=== PATIENT | male | born 1960 | race Caucasian/White ===

== ENCOUNTER 2019-03-30 10:08 | Day surgery (SDC) | payer OTHER ==
[~2019-03-30] VITALS: Ht 172.7 cm; Wt 80.6 kg
[~2019-03-30 10:08] MED LIST: IBUP600 PO; Naprosyn500 MG PO; Veetids 500500 MG PO
[2019-03-30] MEDS ORDERED: HORIZANT600 MG (11:22)
[2019-03-30] MEDS ORDERED: ALBU90OI (11:22)
--- NOTE | 2019-03-30 12:39 | NUR ---
03/30/19 1239 Twhiral,Miroslava PROCEDURE ENDED SHORT DUE TO POOR PREP
== END 2019-03-30 12:28 | disposition home or self-care (01) ==
LOC: ORSCSDS 10:08
PROVIDERS: Internal Medicine Gastroenterology
PROC: 0DJD8ZZ Inspection of Lower Intestinal Tract, Via Natural or Artificial Opening Endoscopic (ICD-10-PCS; principal; 2019-03-30 11:30)
DX: Z12.11 Encounter for screening for malignant neoplasm of colon (principal); K64.8 Other hemorrhoids; F17.210 Nicotine dependence, cigarettes, uncomplicated; Z79.899 Other long term (current) drug therapy
CPT/HCPCS: J2704; J7120

== ENCOUNTER 2019-04-23 07:52 | Day surgery (SDC) | payer OTHER ==
[~2019-04-23] VITALS: Ht 172.7 cm; Wt 82.9 kg
[~2019-04-23 07:52] MED LIST changes: +ALBU90OI; +HORIZANT600 MG
== END 2019-04-23 10:06 | disposition home or self-care (01) ==
LOC: ORSCSDS 07:52
PROVIDERS: Internal Medicine Gastroenterology
PROC: 0DBM8ZX Excision of Descending Colon, Via Natural or Artificial Opening Endoscopic, Diagnostic (ICD-10-PCS; principal; 2019-04-23 09:15)
DX: Z12.11 Encounter for screening for malignant neoplasm of colon (principal); D12.4 Benign neoplasm of descending colon; K64.8 Other hemorrhoids; F17.210 Nicotine dependence, cigarettes, uncomplicated
CPT/HCPCS: 88305; J2704; J7120

== ENCOUNTER 2023-04-16 12:48 | Emergency (ER) | payer OTHER ==
[~2023-04-16] VITALS: Ht 172.7 cm; Wt 81.7 kg
[2023-04-16 13:00] VITALS: BP 165/91
[2023-04-16] MEDS ORDERED: GABA100 PO (15:13)
[2023-04-16] MEDS ORDERED: CEPHALEXIN500 MG PO (15:47)
[2023-04-16] MEDS ORDERED: SULTRIDS PO (15:47)
[2023-04-16] MEDS ORDERED: Percocet 5-3251 EACH PO (15:47)
== END 2023-04-16 16:14 | disposition home or self-care (01) ==
LOC: ER 12:48
DX: L02.512 Cutaneous abscess of left hand (principal); L03.012 Cellulitis of left finger; F17.200 Nicotine dependence, unspecified, uncomplicated
CPT/HCPCS: 73130; 99283-25